=== PATIENT | female | born 1965 | race Caucasian/White ===

== ENCOUNTER 2017-10-09 15:08 | Inpatient (IN) | payer OTHER ==
[2017-10-09] VITALS: BP 137/72
[~2017-10-09] VITALS: Ht 152.4 cm; Wt 80.7 kg
[2017-10-09 16:59] LABS: BILIRUBIN,URINE NEGATIVE (NEGATIVE); CLARITY,URINE CLEAR (CLEAR); COLOR,URINE YELLOW (YELLOW); KETONES,URINE NEGATIVE (NEGATIVE); LEUKOCYTE ESTERASE ,URINE NEGATIVE (NEGATIVE); NITRITE,URINE NEGATIVE (NEGATIVE); PROTEIN,URINE DIPSTICK NEGATIVE (NEGATIVE); URINE UROBILINOGEN 0.2 mg/dL (0.2 - 1)
[2017-10-09 17:08] LABS: ALANINE AMINOTRANSFERASE 19 IU/L (0-55); ALBUMIN 4.3 g/dL (3.5-5.0); ALBUMIN/GLOBULIN RATIO 1.3 (0.8-2.0); ALKALINE PHOSPHATASE 77 IU/L (40-150); ANION GAP 14.3 mmol/L (8-16); BLOOD UREA NITROGEN 13 mg/dL (7-26); BUN/CREATININE RATIO 14 (6-25); CALCIUM 10.3 mg/dL (8.4-10.2); CARBON DIOXIDE 28 mmol/L (22-29); CHLORIDE 103 mmol/L (98-107); EST GLOMERULAR FILTRATION RATE > 60 ML/MIN (60-); GLUCOSE 130 mg/dL (74-118); POTASSIUM 4.3 mmol/L (3.5-5.1); SODIUM 141 mmol/L (136-145)
[2017-10-09 17:09] LABS: EPITHELIAL CELLS,URINE MANY /LPF; RBC,URINE 0-5 /HPF (0-5); WBC,URINE (MAN) 0-5 /HPF (0-5)
[2017-10-09 17:57] LABS: BASOPHILS % 0.3 % (0.0-1.0); EOSINOPHILS % 0.2 % (0.0-6.0); HEMATOCRIT 45.1 % (34.2-44.1); LYMPHOCYTES # (AUTO) 3.2 (1.0-3.2); LYMPHOCYTES % 26.2 % (18.0-39.1); MEAN CORPUSCULAR HEMOGLOBIN 29.8 pg (28-32); MEAN CORPUSCULAR HGB CONC 35.5 g/dL (31-35); MONOCYTES # (AUTO) 0.6 (0.2-0.8); MONOCYTES % 4.6 % (4.4-11.3); NEUTROPHILS # (AUTO) 8.4 (2.1-6.9); NEUTROPHILS % 68.3 % (38.7-80.0); RED BLOOD COUNT 5.37 x10e6/uL (3.6-5.1); RED CELL DISTRIBUTION WIDTH 12.6 % (11.7-14.4)
[2017-10-09 17:59] LABS: PLATELET COUNT 11 x10e3/uL (140-360)
[2017-10-09 18:07] LABS: INR 0.94; PROTHROMBIN TIME 11.8 seconds (11.9-14.5)
[2017-10-09 18:08] LABS: PARTIAL THROMBOPLASTIN TIME 30.5 seconds (23.8-35.5)
[2017-10-09] MEDS ORDERED: SODIUM CHLORIDE FLUSH 10 ML SYR INJ PRN (19:00)
[2017-10-09] MEDS ORDERED: ONDANSETRON HCL INJ 2 MG/ML VIAL IV PRN (19:00)
[2017-10-09] MEDS: IMMU GLOBULIN,GAMMA (IGG) 300 ML IV SCH (20:45)
--- NOTE | 2017-10-09 20:49 | Consultation ---
DATE OF CONSULTATION: This is a 52-year-old white female, who came to the ER with petechiae all over the lower extremities, as well as blood in the stool, which she had noticed on approximately September 15. Patient claims that she had vaginitis. She was given clindamycin. She started having diarrhea. At one time, there was blood in the stools. She has stopped clindamycin, but she does have petechiae all over the lower extremities. Subsequently, seen in the ER with some blood blisters over the tongue. Subsequently, seen and admitted for further evaluation and treatment. Dr. Mina had consulted me. I have come to the ER right away as soon as the ER physician, Dr. Ortega, had called me. Subsequently, no access to the records as usual since the patient's name does not show up on the list, even though repeatedly I had asked the ER nursing staff to put the patient on my list, so that I could access. However, the labs were printed by the nursing staff. Subsequently, I have spoken to the patient as well as the mom. HISTORY OF PAST ILLNESSES: History of hypertension, history of hyperlipidemia. MEDICATIONS: At this time, hydrochlorothiazide, which he has taken for more than 4 years. History of taking Lipitor. SOCIAL HISTORY: The patient claims that she does drink alcohol occasionally, but not heavily. The patient has not assessed for any hepatitis. FAMILY HISTORY: Noncontributory. ALLERGIES: NONE. REVIEW OF SYSTEMS HEENT: Normal. CARDIAC: Hyperlipidemia, hypertension. RESPIRATORY: Normal. GI: The patient perhaps had Clostridium difficile colitis when treated with clindamycin recently. : Normal. MUSCULOSKELETAL: Normal. SKIN AND BREASTS: Normal. NEUROENDOCRINE: Normal. PHYSICAL EXAM GENERAL: A moderately built female. Has spider angioma over the chest. NECK: No palpable adenopathy. HEART: Within normal limits. LUNGS: Clear. BREASTS: Exam deferred request. ABDOMEN: Obese. There was no hepatosplenomegaly. RECTAL AND VAGINAL: Exam deferred at request. CENTRAL NERVOUS SYSTEM: Essentially normal. EXTREMITIES: Reveals petechiae up to the knee on both lower extremities and some blood blisters approximately 0.5 cm over the tongue, as well as the soft palate. LAB AND INVESTIGATION: Showing hemoglobin of 16, hematocrit 45.1, MCV 84, MCHC 35.5, RDW 12.6, white count of 12,300, platelets are reported at 11,000, neutrophils 68.3%, 26.2% lymphocytes, 4.6% eosinophils, 0.3% basophils. No immature forms are scars seen. INR 0.94. Sodium of 141, potassium 4.3, chloride 73, CO2 28, BUN 13, creatinine 0.9. Her calcium slightly high at 10.3. Glucose slightly high at 130. Bilirubin slightly high at 1.9, SGOT 17, SGPT 19, total protein 7.5, albumin 4.3, globulin 3.2, alkaline phosphatase normal at 77. Urinalysis is essentially normal. IMPRESSIONS 1. Acute idiopathic thrombocytopenic purpura. 2. Possible Clostridium difficile colitis in early September. 3. History of hypertension. 4. History of hyperlipidemia. 5. Spider angioma over the chest with slightly high bilirubin, possible fatty metamorphosis of the liver. 6. Hypercalcemia. PLAN: To have antiplatelet antibodies, CBC daily. No platelet transfusion as index of suspicion is that this is acute ITP. High dose Solu-Medrol. IVIg. Closely watch the platelet count, BUN, and creatinine daily. A PTH level. Sulfa, clostridia colitis. Ultrasound of the liver. Hepatitis profile. Job#: [id number] CQ cc:MD DR SILVER LEVIN
[2017-10-09 22:34] VITALS: BP 148/79
[2017-10-09 23:00] VITALS: BP 148/79
[2017-10-10] VITALS (7 sets, daily range): BP systolic 132–162; BP diastolic 66–96
[2017-10-10] MEDS ORDERED: METHYLPREDNISOLONE SOD SUCC 40 MG/ML VIAL IV SCH
[2017-10-10] MEDS: METHYLPREDNISOLONE SOD SUCC 125 MG/2ML VIAL IV SCH ×4 (00:41→18:01)
[2017-10-10 06:48] LABS: BASOPHILS % 0.1 % (0.0-1.0); HEMATOCRIT 42.3 % (34.2-44.1); LYMPHOCYTES # (AUTO) 1.2 (1.0-3.2); LYMPHOCYTES % 10.6 % (18.0-39.1); MEAN CORPUSCULAR HEMOGLOBIN 29.7 pg (28-32); MEAN CORPUSCULAR HGB CONC 35.5 g/dL (31-35); MEAN CORPUSCULAR VOLUME 83.8 fL (81-99); MONOCYTES # (AUTO) 0.1 (0.2-0.8); MONOCYTES % 0.6 % (4.4-11.3); NEUTROPHILS # (AUTO) 10.2 (2.1-6.9); NEUTROPHILS % 88.4 % (38.7-80.0); RED BLOOD COUNT 5.05 x10e6/uL (3.6-5.1); RED CELL DISTRIBUTION WIDTH 12.5 % (11.7-14.4)
[2017-10-10 07:04] LABS: PLATELET COUNT 20 x10e3/uL (140-360)
[2017-10-10 07:18] LABS: ALANINE AMINOTRANSFERASE 17 IU/L (0-55); ALBUMIN 4.1 g/dL (3.5-5.0); ALBUMIN/GLOBULIN RATIO 1.3 (0.8-2.0); ALKALINE PHOSPHATASE 68 IU/L (40-150); BLOOD UREA NITROGEN 13 mg/dL (7-26); BUN/CREATININE RATIO 16 (6-25); CALCIUM 9.6 mg/dL (8.4-10.2); CARBON DIOXIDE 25 mmol/L (22-29); CHLORIDE 104 mmol/L (98-107); CREATININE, SERUM 0.81 mg/dL (0.57-1.11); EST GLOMERULAR FILTRATION RATE > 60 ML/MIN (60-); GLUCOSE 227 mg/dL (74-118); SODIUM 139 mmol/L (136-145)
[2017-10-10 07:36] LABS: ANION GAP 11.9 mmol/L (8-16); BLOOD UREA NITROGEN 14 mg/dL (7-26); BUN/CREATININE RATIO 18 (6-25); CALCIUM 9.6 mg/dL (8.4-10.2); CARBON DIOXIDE 26 mmol/L (22-29); CHLORIDE 103 mmol/L (98-107); EST GLOMERULAR FILTRATION RATE > 60 ML/MIN (60-); GLUCOSE 227 mg/dL (74-118); MAGNESIUM 1.8 MG/DL (1.3-2.1); POTASSIUM 3.9 mmol/L (3.5-5.1); SODIUM 137 mmol/L (136-145)
[2017-10-10] MEDS ORDERED: SIMVASTATIN20 MG PO (07:42)
[2017-10-10] MEDS ORDERED: HYDROCHLOROTHIA25 MG PO (07:42)
[2017-10-10 07:45] LABS: B-TYPE NATRIURETIC PEPTIDE2 225.5 pg/mL (0-100)
[2017-10-10 07:58] LABS: FREE T4 (FREE THYROXINE) 1.07 ng/dL (0.9-1.8); THYROID STIMULATING HORMONE 1.123 uIU/mL (0.350-4.940)
[2017-10-10] MEDS ORDERED: HYDRALAZINE HCL 20 MG/ML VIAL IV PRN (11:30)
[2017-10-10] MEDS ORDERED: ACETAMINOPHEN 325 MG TAB PO PRN (11:30)
[2017-10-10] MEDS: AMLODIPINE BESYLATE 5 MG TAB PO SCH (12:00)
[2017-10-10] MEDS: FAMOTIDINE 20 MG TAB PO SCH (18:01)
[2017-10-10] MEDS: SIMVASTATIN 20 MG TAB PO SCH ×2 (21:00→21:01)
[2017-10-10] MEDS: IMMU GLOBULIN,GAMMA (IGG) 300 ML IV SCH (21:01)
[2017-10-11] VITALS: BP 149/81
[2017-10-11] MEDS: METHYLPREDNISOLONE SOD SUCC 125 MG/2ML VIAL IV SCH ×4 (00:36→18:00)
[2017-10-11 04:00] VITALS: BP 121/71
[2017-10-11 06:46] LABS: BASOPHILS % 0.1 % (0.0-1.0); HEMATOCRIT 41.1 % (34.2-44.1); HEMOGLOBIN 14.5 g/dL (12.0-16.0); LYMPHOCYTES # (AUTO) 1.7 (1.0-3.2); LYMPHOCYTES % 7.5 % (18.0-39.1); MEAN CORPUSCULAR HEMOGLOBIN 29.2 pg (28-32); MEAN CORPUSCULAR HGB CONC 35.3 g/dL (31-35); MEAN CORPUSCULAR VOLUME 82.9 fL (81-99); MONOCYTES # (AUTO) 0.3 (0.2-0.8); MONOCYTES % 1.4 % (4.4-11.3); NEUTROPHILS # (AUTO) 20.1 (2.1-6.9); NEUTROPHILS % 90.2 % (38.7-80.0); PLATELET COUNT 120 x10e3/uL (140-360); RED BLOOD COUNT 4.96 x10e6/uL (3.6-5.1); RED CELL DISTRIBUTION WIDTH 12.4 % (11.7-14.4)
[2017-10-11 07:14] LABS: ANION GAP 12.6 mmol/L (8-16); BLOOD UREA NITROGEN 13 mg/dL (7-26); BUN/CREATININE RATIO 16 (6-25); CALCIUM 9.5 mg/dL (8.4-10.2); CARBON DIOXIDE 24 mmol/L (22-29); CHLORIDE 106 mmol/L (98-107); CREATININE, SERUM 0.79 mg/dL (0.57-1.11); EST GLOMERULAR FILTRATION RATE > 60 ML/MIN (60-); GLUCOSE 258 mg/dL (74-118); MAGNESIUM 1.9 MG/DL (1.3-2.1); POTASSIUM 3.6 mmol/L (3.5-5.1); SODIUM 139 mmol/L (136-145)
[2017-10-11 07:45] LABS: CREATININE, SERUM 0.79 mg/dL (0.57-1.11)
[2017-10-11 08:00] VITALS: BP 121/71
[2017-10-11 08:08] VITALS: BP 124/70
[2017-10-11] MEDS: FAMOTIDINE 20 MG TAB PO SCH ×2 (09:11→16:30)
[2017-10-11] MEDS: AMLODIPINE BESYLATE 5 MG TAB PO SCH (09:11)
[2017-10-11 10:50] LABS: BAND NEUTROPHILS % (MANUAL) 1 %; LYMPHOCYTES % (MANUAL) 8 % (19-48); MONOCYTES % (MANUAL) 4 % (3.4-9.0); NEUTROPHILS % (MANUAL) 87 % (40-74)
[2017-10-11 10:51] LABS: PLATELET ESTIMATE ADEQUATE; PLATELET MORPHOLOGY COMMENT NORMAL; RBC MORPHOLOGY COMMENT NORMAL
[2017-10-11 12:00] VITALS: BP 133/75
[2017-10-11] MEDS ORDERED: NORVASC5 MG PO (16:09)
[2017-10-11] MEDS ORDERED: PREDNISONE20 MG PO (16:09)
[2017-10-11 16:37] VITALS: BP 142/72
--- NOTE | 2017-10-12 07:11 | Discharge Summary ---
ADMISSION DIAGNOSES 1. Idiopathic thrombocytopenic purpura. 2. Hypercalcemia. 3. Hypertension. 4. Hyperlipidemia. DISCHARGE DIAGNOSES 1. Idiopathic thrombocytopenic purpura. 2. Hypercalcemia. 3. Hypertension. 4. Hyperlipidemia. HISTORY: Patient has a history of hypertension and high cholesterol. HOSPITAL COURSE: A 52-year-old female admitted to the hospital after noticing easy bruising for about a week. Upon admission to the hospital, her platelets were found to be 11. She denies any dev bleeding. No dizziness. Hematology was consulted, and the patient was placed on IV Ig, as well as IV Solu-Medrol. Home meds resumed for high cholesterol. Her hydrochlorothiazide was discontinued per hematology. The patient was placed on Norvasc instead. At the time of discharge, the patient's platelet count is now 120,000. WBC is 22.27, afebrile and likely due to steroids. Hemoglobin 14.5, hematocrit 41.1. Sodium 139, potassium 3.6, GFR was 60, creatinine 0.79. Calcium 9.5. Mag 1.9. The patient's hep B total antibody came back positive. Hep A IgM is negative. The patient will follow up with primary care in 1-2 weeks. She will be sent home with 10 mg of Norvasc daily, as well as prednisone for 7 more days p.o. per hematology. The patient is excited and ready to go home. DICTATED BY LENORA [address] [place] MD Job#: [id number] [place]
== END 2017-10-11 18:30 | disposition home or self-care (01) | DRG 813 ==
LOC: ER 15:08 → ERHOLD 18:58 → IMCU 20:47 → OBSVTOIN 10-11 09:02
PROVIDERS: ADMIT Internal Medicine; ATTEND Internal Medicine
DX: D69.3 Immune thrombocytopenic purpura (principal); E83.52 Hypercalcemia; I10 Essential (primary) hypertension; E78.5 Hyperlipidemia, unspecified; Z80.9 Family history of malignant neoplasm, unspecified; Z82.3 Family history of stroke; D72.829 Elevated white blood cell count, unspecified; I78.1 Nevus, non-neoplastic; E66.9 Obesity, unspecified; Z68.34 Body mass index [BMI] 34.0-34.9, adult
CPT/HCPCS: 36415; 80048; 80053; 81001; 82575; 83036; 83735; 83880; 83970; 84439; 84443; 84520; 85025; 85610; 85730; 86677; 86704; 93005; 99284; G0378; J1561; J2930